=== PATIENT | female | born 1975 | race Caucasian/White ===

== ENCOUNTER 2021-02-21 12:38 | Emergency (ER) | payer OTHER, SELFPAY ==
[2021-02-21 12:45] VITALS: BP 107/67; PULSE 101; RESP 16; TEMP 37.1; O2SAT 100
--- NOTE | 2021-02-21 12:59 | ED.SKABFB ---
HPI - Skin/Abscess/Foreign Bdy General Chief complaint: Skin/Abscess/Foreign Body Stated complaint: SPIDER BITE Time Seen by Provider: 02/21/21 12:48 Source: patient and RN notes reviewed Mode of arrival: ambulatory Limitations: no limitations History of Present Illness HPI narrative: Patient presents today with an insect bite to her left buttock that she noticed yesterday. Reports that her daughter told her today that it looks like it may be infected and has a bruise around it. Patient called her PCP to get in for an appointment today, but was told to come to urgent care for evaluation. Patient denies pain, but reports itching. Reports soreness with touching. She has tried no interventions for symptoms prior to arrival. MD complaint: insect bite/sting Related Data Allergies Allergy/AdvReac Type Severity Reaction Status Date / Time cephalexin Allergy Unknown Skin Verified 10/07/20 16:05 Reaction codeine Allergy Unknown stomach Verified 10/07/20 16:05 pains erythromycin base Allergy Unknown Skin Verified 10/07/20 16:05 Reaction hydrocodone Allergy Unknown Unknown Verified 10/07/20 16:05 Penicillins Allergy Unknown Skin Verified 10/07/20 16:05 Reaction Sulfa (Sulfonamide Allergy Unknown Skin Verified 10/07/20 16:05 Antibiotics) Reaction Review of Systems Review of Systems: Narrative: CONSTITUTIONAL: Denies body aches, fever, chills, or sweats. EYES: Denies visual changes, redness, or discharge. ENT: Denies rhinorrhea, congestion, sore throat, or otalgia. CARDIOVASCULAR: Denies chest pain, palpitations, or edema. RESPIRATORY: Denies cough or dyspnea. GASTROINTESTINAL: Denies abdominal pain, nausea, vomiting, or diarrhea. GENITOURINARY: Denies dysuria or hematuria. SKIN: Denies rash, itching, or wounds.+ Insect bite to left buttock MUSCULOSKELETAL: Denies back pain, joint pain, or myalgia. NEUROLOGIC: Denies headache, numbness, tingling, or weakness. PSYCH: Denies depression or anxiety. [facility] Family History Family History Grandparent Diabetes mellitus Family history of coronary artery disease Father Hypertension Family history of elevated blood lipids Cerebrovascular accident Family history of coronary artery disease Mother Hypertension Social History Social History Smoking status: Never smoker Alcohol intake: never Comments At time of signature, I have reviewed and agree with nursing past medical, surgical, social and family history unless otherwise noted. Please see nursing chart for further information. There is no relevant family history pertinent to the presenting complaint Exam Narrative: Exam Narrative: GENERAL: Well-appearing, well-nourished, and in no acute distress. HEAD: Normocephalic, atraumatic. EYES: EOMI. No redness or drainage. Conjunctivae normal. ENT: Mucous membranes pink and moist. NECK: Normal AROM. CHEST: No respiratory distress. EXTREMITIES: Normal range of motion. No edema. SKIN: Warm, dry, no rash. Capillary refill normal. Normal skin turgor. 2 x 2 centimeter area of old healing ecchymosis to the left lower buttock with area in the center that appears to have a scab removed. No area of erythema, induration, fluctuance. No other evidence of bacterial infection present. NEURO: No focal deficits. Alert and oriented x3. Gait steady. PSYCH: Normal affect. No signs of depression or anxiety. Course Vital Signs Vital signs: Vital Signs Temperature 98.7 F 02/21/21 12:45 Pulse Rate 101 H 02/21/21 12:45 Respiratory Rate 16 02/21/21 12:45 Blood Pressure 107/67 02/21/21 12:45 Pulse Oximetry 100 02/21/21 12:45 Temperature 98.7 F 02/21/21 12:45 Pulse Rate 101 H 02/21/21 12:45 Respiratory Rate 16 02/21/21 12:45 Blood Pressure 107/67 02/21/21 12:45 Pulse Oximetry 100 02/21/21 12:45 Reviewed MDM - Skin
== END 2021-02-21 13:04 | disposition home or self-care (01) ==
PROVIDERS: Emergency Provider Nurse Practitioner; PCP Family Medicine
DX: S30.0XXA Contusion of lower back and pelvis, initial encounter (principal); S30.860A Insect bite (nonvenomous) of lower back and pelvis, initial encounter; W57.XXXA Bitten or stung by nonvenomous insect and other nonvenomous arthropods, initial encounter
CPT/HCPCS: 99211; G0463

== ENCOUNTER 2023-03-31 11:21 | Outpatient (CLI) | payer OTHER, SELFPAY ==
[2023-03-31 12:12] LABS: Basophils Absolute Auto 0.1 K/mm3 (0.0-0.1); Basophils Percent Auto 0.5 % (0.2-1.2); Eosinophils Absolute Auto 0.1 K/mm3 (0-0.3); Eosinophils Percent Auto 0.8 % (0-4.4); Hematocrit 43.4 % (37.0-47.0); Hemoglobin 14.4 g/dL (12.0-15.0); Immature Granulocyte Absolute 0.01 K/mm3 (0.00-0.031); Immature Granulocyte Percent A 0.1 % (0-0.5); Lymphocytes Absolute Auto 2.47 K/mm3 (0.9-3.2); Lymphocytes Percent Auto 26.5 % (18.3-44.2); Mean Corpuscular HGB Conc 33.2 g/dl (32-36); Mean Corpuscular Hemoglobin 30.2 pg (26-34); Mean Platelet Volume 10.1 fl (7.4-10.4); Monocytes Absolute Auto 0.5 K/mm3 (0.1-0.6); Monocytes Percent Auto 5.8 % (2.6-8.5); Neutrophils Absolute Auto 6.2 K/mm3 (1.3-6.7); Neutrophils Percent Auto 66.3 % (45.5-73.1); Platelet Count Result 275 k/mm3 (150-375); Red Blood Count 4.77 M/mm3 (4.2-5.4); Red Cell Distribution Width 13.2 % (11.5-14.5); White Blood Count 9.3 K/mm3 (4.5-10.0)
[2023-03-31 12:36] LABS: Troponin I < 0.012 ng/mL (0.000-0.034)
[2023-03-31 12:43] LABS: D Dimer < 0.27 ug/mL (<0.48)
== END 2023-03-31 11:22 | disposition home or self-care (01) ==
LOC: ANHGOSHLAB 11:22
PROVIDERS: PCP Family Medicine; Visit Provider Nurse Practitioner Family
DX: R00.0 Tachycardia, unspecified (principal); R42 Dizziness and giddiness
CPT/HCPCS: 36415; 84484; 85025; 85380

== ENCOUNTER 2023-08-20 00:49 | Day surgery (SDC) | payer OTHER, SELFPAY ==
[2023-08-05 10:38] VITALS: BMI 25.6
--- NOTE | 2023-08-18 09:34 | SUR.PREOP ---
Patient called regarding upcoming procedure. Reviewed preop instructions, appointment times, and procedure prep.
--- NOTE | 2023-08-19 13:59 | PM.HPGS ---
History of Present Illness History of Present Illness Consent: Risks, benefits, and alternatives have been discussed and questions answered. Patient agrees to proceed with procedure. Chief complaint: neoplasm screening Narrative: Anshu Morin is a 48 year old female referred for colon cancer screening. Review of Systems Review of Systems: All systems reviewed & are unremarkable except as noted in HPI and below PMFSH Past Medical History Medical History Light-headed feeling Tachycardia Family History Family History Grandparent Diabetes mellitus Family history of coronary artery disease Father Hypertension Family history of elevated blood lipids Cerebrovascular accident Family history of coronary artery disease Mother Hypertension Social History Social History Smoking status: Never smoker Alcohol intake: never Substance use: never Substance use type: does not use Lack of Transportation: No Lack of Food: Never True Current Housing: I Have Housing Concerned About Future Housing: No Difficulty Paying Gas/Electric Bills: No Difficulty Paying for Meds: No Currently Unemployed: No Education: Bachelor's Degree Difficulty w/ Childcare or Family Care: No Living arrangements: with family Spiritual care concerns: No Meds Home Medications and Allergies Home Medications Medication Instructions Recorded Confirmed Type rosuvastatin 20 mg tablet 20 mg PO DAILY #90 tabs 08/09/23 08/20/23 Rx Allergies Allergy/AdvReac Type Severity Reaction Status Date / Time cephalexin Allergy Unknown Skin Verified 08/05/23 10:39 Reaction codeine Allergy Unknown stomach Verified 08/05/23 10:39 pains erythromycin base Allergy Unknown Skin Verified 08/05/23 10:39 Reaction hydrocodone Allergy Unknown Unknown Verified 08/05/23 10:39 Penicillins Allergy Unknown Skin Verified 08/05/23 10:39 Reaction Sulfa (Sulfonamide Allergy Unknown Skin Verified 08/05/23 10:39 Antibiotics) Reaction Exam Const: General: alert Orientation/consciousness: patient oriented x3 Resp: Auscultation: clear to auscultation bilaterally Cardio: Rhythm: regular rhythm GI: GI Palp: Yes Soft to palpation and No Tenderness to palpation present (GI) Neuro: General: patient oriented x3 Assessment and Plan Assessment and plan (1) Screening for colon cancer: Code(s): Z12.11 - Encounter for screening for malignant neoplasm of colon Status: Acute Assessment and Plan: Colonoscopy with possible biopsy or polypectomy or cautery or injection of substances.
[2023-08-20 09:00] VITALS: BP 111/72; PULSE 81; RESP 18; TEMP 36.4; O2SAT 99; BMI 25.2
[2023-08-20] MEDS: LACTATED RINGERS 1,000 ML 150 ML IV CONT (09:10)
--- NOTE | 2023-08-20 09:18 | P.PNAN_ITS ---
Anes - Initial Pre Proc Eval Procedure: Operation Date: 08/20/23 10:00 Proposed Procedures p Screening Colonoscopy - Barrett Chowdhury MD Date/Time: 08/20/23 09:18 Surgeon: Barrett Chowdhury MD Pre Op Diagnosis: neoplasm screening Patient Data Age: 48 Gender: F Height: 1.55 m Weight: 60.6 kg Last Vital Signs Temp 97.6 F 08/20/23 09:00 Pulse 81 08/20/23 09:00 Resp 18 08/20/23 09:00 BP 111/72 08/20/23 09:00 Pulse Ox 99 08/20/23 09:00 O2 Del Method Room Air 08/20/23 09:00 Allergies Allergy/AdvReac Type Severity Reaction Status Date / Time cephalexin Allergy Unknown Skin Verified 08/05/23 10:39 Reaction codeine Allergy Unknown stomach Verified 08/05/23 10:39 pains erythromycin base Allergy Unknown Skin Verified 08/05/23 10:39 Reaction hydrocodone Allergy Unknown Unknown Verified 08/05/23 10:39 Penicillins Allergy Unknown Skin Verified 08/05/23 10:39 Reaction Sulfa (Sulfonamide Allergy Unknown Skin Verified 08/05/23 10:39 Antibiotics) Reaction Home Medications Medication Instructions Recorded Confirmed Type rosuvastatin 20 mg tablet 20 mg PO DAILY #90 tabs 08/09/23 08/20/23 Rx Patient hx anesthesia problems: none Family hx anesthesia problems: none Results Review: All pre-operative results and documents have been reviewed as part of the pre- operative evaluation. [facility] Past Medical History Medical History Light-headed feeling Tachycardia Family History Family History Grandparent Diabetes mellitus Family history of coronary artery disease Father Hypertension Family history of elevated blood lipids Cerebrovascular accident Family history of coronary artery disease Mother Hypertension Social History Social History Smoking status: Never smoker Alcohol intake: never Substance use: never Substance use type: does not use Lack of Transportation: No Lack of Food: Never True Current Housing: I Have Housing Concerned About Future Housing: No Difficulty Paying Gas/Electric Bills: No Difficulty Paying for Meds: No Currently Unemployed: No Education: Bachelor's Degree Difficulty w/ Childcare or Family Care: No Living arrangements: with family Spiritual care concerns: No Anes - Eval Final PreProcedure Day of Procedure 08/20/23 09:18 Patient weight: normal Heart: regular rate and rhythm Lungs: clear to auscultation Airway: Mallampati scale class II Neurological: alert and oriented Last oral intake: >/= 8 hours ASA classification: II Emergent: no Anesthetic plan: proceed Anesthesia type and monitoring: general GIVS and standard monitoring Results Review: All pre-operative results and documents have been reviewed as part of the pre- operative evaluation. Informed Consent: The patient's anesthetic plan and its attendant risks and benefits were d iscussed with the patient/family/POA. Questions were solicited and answers provided to the satisfaction of the patient/family/POA.
[2023-08-20] MEDS: SIMETHICONE ORAL SUSPENSION 20 MG/0.3 ML 30 ML BOTTLE 0.6 ML IRRIGATION (10:00)
[2023-08-20 10:11] VITALS: BP 90/54; PULSE 75; RESP 18; O2SAT 97
[2023-08-20 10:21] VITALS: BP 99/60; PULSE 85; RESP 20; O2SAT 100
[2023-08-20 10:31] VITALS: BP 109/62; PULSE 81; RESP 18; O2SAT 100
== END 2023-08-20 10:34 | disposition home or self-care (01) ==
PROVIDERS: PCP Family Medicine; Visit Provider Internal Medicine Gastroenterology
PROC: 0DJD8ZZ Inspection of Lower Intestinal Tract, Via Natural or Artificial Opening Endoscopic (ICD-10-PCS; CPT 45378; principal; 2023-08-20 10:00)
DX: Z12.11 Encounter for screening for malignant neoplasm of colon (principal); R00.0 Tachycardia, unspecified; Z82.49 Family history of ischemic heart disease and other diseases of the circulatory system
CPT/HCPCS: 45378; J2704; J7120

== ENCOUNTER 2025-07-10 08:23 | Outpatient (CLI) | payer OTHER, SELFPAY ==
--- NOTE | 2025-07-30 11:59 | WPDHOMESLEEP ---
Sleep Study - Home Unattended Date of Study: 07/10/25 Ordering Provider: Re Kellogg DO Interpreting Provider: Rachel Escamilla MD Home Sleep Study Type: Watch PAT Height: 1.56 m Weight: 74.843 kg Body Mass Index: 30.7 Neck Circumference (inches): 15 [place]: 12 Reason for Sleep Study Hypersomnolence Sleep History Asnhu Morin is a 49-year-old female who has witnessed apneas reported to her by her , occurring at least for 6 months. She occasionally awakens from sleep feeling short of breath. She occasionally awakens at night with heartburn, belching or coughing. She constantly snores and it is always loud enough that others complain about it. She frequently has difficulty sleeping when she has a cold. She occasionally wakes up gasping for breath at night. She frequently has breathing problems at night observed by others and frequently sweats excessively at night. She never notices her heart pounding or beating irregularly at night. She frequently falls asleep during the day but never involuntarily or while driving. She does not have loss of muscle tone with strong emotion. She does not have daytime difficulties due to excessive sleepiness. She rarely feels paralyzed on waking or falling asleep. She never has vivid dreamlike scenes upon awakening or falling asleep. She never feels afraid to go to sleep. She rarely has nightmares. She rarely remembers her dreams. She frequently has racing thoughts. She does not feel sad or depressed. She does not have anxiety. She rarely has muscular tension. She does not notice parts of her body jerking. She rarely kicks at night. She does not have crawling or aching feelings in her legs. She rarely has any kind of leg pain at night. She occasionally has morning jaw pain. She rarely grinds her teeth at night. She does not feel bothered by pain during the day rarely is awakened by pain at night. She constantly wakes up feeling stiff in the morning. She occasionally wakes up with sore or achy muscles, occasionally wakes up with pain in the neck and spine. She has gained weight during the last year. Normal bedtime is 10:30 p.m., falling asleep within 30-45 minutes, typically waking between 2 and 3 times during the night, is awake for 15-30 minutes, lying in bed trying to return to sleep. She wakes in the morning at 5:20 a.m.. She keeps a similar schedule on weekends, bedtime is 11:00 p.m., waking between 6:30 a.m. and 7:00 a.m.. She estimates getting 7 hours of sleep at night. She takes naps in the afternoon or evening. A short nap lasting 10-15 minutes may be refreshing. She is drowsy for 1 hour after waking. She feels better in the morning compared to other times of day. Habits: Tobacco : never smoker Caffeine : 1 per day Alcohol : none Recreational substances : none [facility] Past Medical History Medical History (Updated 08/02/25 @ 14:15 by Rachel Escamilla MD) Pure hypercholesterolemia, unspecified Light-headed feeling Tachycardia Family History Family History Grandparent Diabetes mellitus Family history of coronary artery disease Father Hypertension Family history of elevated blood lipids Cerebrovascular accident Family history of coronary artery disease Mother Hypertension Social History Social History Smoking status: Never smoker Alcohol intake: never Substance use: never Substance use type: does not use Lack of Transportation: No Lack of Food: Never True Current Housing: I Have Housing Concerned About Future Housing: No Difficulty Paying Gas/Electric Bills: No Difficulty Paying for Meds: No Currently Unemployed: No Education: Bachelor's Degree Difficulty w/ Childcare or Family Care: No Living arrangements: with family Spiritual care concerns: No Medications Home Medications ?Medication ?Instructions ?Recorded ?Confirmed ?Type hydroxyzine HCl 25 mg tablet 25 mg PO BID PRN anxiety #30 tabs 11/06/24 06/05/25 Rx rosuvastatin 40 mg tablet 40 mg PO DAILY #90 tabs 02/05/25 06/05/25 Rx Sleep Procedure The sleep study was completed using WatchPAT a technically adequate device with seven channels: peripheral arterial tone, actigraphy, body position, snore, respiratory movement, pulse oximetry, sleep staging, and heart rate. Prior to using the device, the patient received verbal and written instructions for its application and was provided with the [employer] desk phone number for additional telephonic instruction with 24-hour availability of qualified personnel to answer questions. Sleep Architecture The total recording time is 6 hrs, 50 min. The total sleep time is 6 hrs, 39 min. Sleep latency is 6 minutes. REM latency is 42 minutes. The patient had 2 episodes of waking. Sleep architecture shows 21.3% deep sleep, 49.9% light sleep, and 28.8% stage REM. The patient spent 42.9% of total sleep time in the supine position. Sleep efficiency was 97%. Respiratory Analysis The overall AHI (pAHI 3%:) is 39.8. The central AHI is 6.7. The AHI was 42.0 in NREM and 34.2 in REM sleep. The AHI was 61.6 in Supine and 23.8 in Non-supine sleep. Percent of Justin Aparicio respirations is 0%. Oximetry Data The oxygen desaturation index (NÉSTOR 4%:) is 20.7. The mean saturation is 94%, and the lowest saturation is 84%. Time spent with saturation < 88% is 1.1 minutes. Snoring Profile Snoring average intensity is 55 dB. The patient snored above 45 decibels for 294.3 minutes, 73.8% of sleep time. Cardiac Profile The average pulse rate is 78 beats per minutes. The lowest pulse rate is 51 bpm. The highest pulse rate is 152 bpm. Cardiac rhythm analysis in sleep does not show atrial fibrillation. Assessment and Plan Assessment and Plan (1) Obstructive sleep apnea: Code(s): G47.33 - Obstructive sleep apnea (adult) (pediatric) Status: Acute Assessment and Plan: This home sleep test on 07/10/2025 shows severe obstructive sleep apnea, the overall apnea-hypopnea index is 39.8 (p>3%) , central AHI is 6.7 which is mild, supine index is higher, a 61.6, no Justin-Aparicio, lowest desaturation 84% and moderately loud snoring throughout the study. Due to the elevated central apnea index 6.7, normal is < 5 per hour, she she does have a dedicated full night CPAP titration in the sleep lab with a sleep aid available, Ambien 5-10 mg or Lunesta 2-3 mg, to get to sleep and stay asleep. She should not nap on the day of the study. Auto PAP is not recommended as this can increase the number of central apneas. Due to an increase in central apneas, consider an echo to determine if there is any left ventricular dysfunction. Increased central apneas can be seen in the setting of stroke, left ventricular dysfunction, opioids and alcohol. Patient does not have any of these per history. BMI is 30. Weight management is advised. Clinical data suggests that weight loss of 10% can reduce the severity of respiratory events and snoring and improve AHI by as much as 25%. Data The data obtained during this sleep study is adequate for interpretation. Certification This sleep study has been reviewed by a board certified sleep medicine physician.
[2025-08-02 14:11] VITALS: BMI 30.7
== END 2025-07-11 15:23 | disposition home or self-care (01) ==
PROVIDERS: PCP Family Medicine; Visit Provider Family Medicine
DX: G47.33 Obstructive sleep apnea (adult) (pediatric) (principal)
CPT/HCPCS: 95800

== ENCOUNTER 2025-08-30 10:53 | Outpatient (CLI) | payer OTHER, SELFPAY ==
--- NOTE | 2025-10-01 12:09 | WPDSLEEPSTUD ---
Sleep Study Date of Study: 08/30/25 Ordering Provider: Re Kellogg DO Interpreting Physician: Rachel Escamilla MD Sleep Study Type: CPAP Titration Height: 1.56 m Weight: 80.74 kg Body Mass Index: 33.0 Neck Circumference (inches): 15 [place]: 12 Reason for Sleep Study Hypersomnolence; (+) PSG 07/10/2025, returns for PAP titration Sleep History This sleep history is from her 07/10/25 sleep questionnaire; Anshu Morin is a 49-year-old female who has witnessed apneas reported to her by her , occurring at least for 6 months. She occasionally awakens from sleep feeling short of breath. She occasionally awakens at night with heartburn, belching or coughing. She constantly snores and it is always loud enough that others complain about it. She frequently has difficulty sleeping when she has a cold. She occasionally wakes up gasping for breath at night. She frequently has breathing problems at night observed by others and frequently sweats excessively at night. She never notices her heart pounding or beating irregularly at night. She frequently falls asleep during the day but never involuntarily or while driving. She does not have loss of muscle tone with strong emotion. She does not have daytime difficulties due to excessive sleepiness. She rarely feels paralyzed on waking or falling asleep. She never has vivid dreamlike scenes upon awakening or falling asleep. She never feels afraid to go to sleep. She rarely has nightmares. She rarely remembers her dreams. She frequently has racing thoughts. She does not feel sad or depressed. She does not have anxiety. She rarely has muscular tension. She does not notice parts of her body jerking. She rarely kicks at night. She does not have crawling or aching feelings in her legs. She rarely has any kind of leg pain at night. She occasionally has morning jaw pain. She rarely grinds her teeth at night. She does not feel bothered by pain during the day rarely is awakened by pain at night. She constantly wakes up feeling stiff in the morning. She occasionally wakes up with sore or achy muscles, occasionally wakes up with pain in the neck and spine. She has gained weight during the last year. Normal bedtime is 10:30 p.m., falling asleep within 30-45 minutes, typically waking between 2 and 3 times during the night, is awake for 15-30 minutes, lying in bed trying to return to sleep. She wakes in the morning at 5:20 a.m.. She keeps a similar schedule on weekends, bedtime is 11:00 p.m., waking between 6:30 a.m. and 7:00 a.m.. She estimates getting 7 hours of sleep at night. She takes naps in the afternoon or evening. A short nap lasting 10-15 minutes may be refreshing. She is drowsy for 1 hour after waking. She feels better in the morning compared to other times of day. Habits: Tobacco : never smoker Caffeine : 1 per day Alcohol : none Recreational substances : none [facility] Past Medical History Medical History (Updated 10/02/25 @ 13:04 by Rachel Escamilla MD) Obstructive sleep apnea Pure hypercholesterolemia, unspecified Light-headed feeling Tachycardia Family History Family History Grandparent Diabetes mellitus Family history of coronary artery disease Father Hypertension Family history of elevated blood lipids Cerebrovascular accident Family history of coronary artery disease Mother Hypertension Social History Social History Smoking status: Never smoker Alcohol intake: never Substance use: never Substance use type: does not use Lack of Transportation: No Lack of Food: Never True Current Housing: I Have Housing Concerned About Future Housing: No Difficulty Paying Gas/Electric Bills: No Difficulty Paying for Meds: No Currently Unemployed: No Education: Bachelor's Degree Difficulty w/ Childcare or Family Care: No Living arrangements: with family Spiritual care concerns: No Medications Home Medications ?Medication ?Instructions ?Recorded ?Confirmed ?Type rosuvastatin 40 mg tablet 40 mg PO QHS 09/11/25 09/11/25 History doxycycline hyclate 100 mg capsule 100 mg PO BID #20 caps 09/27/25 Rx methylprednisolone 4 mg tablets in See Rx Instructions PO PER PKG DIR 09/27/25 Rx a dose pack (Medrol ([place])) #21 ea Sleep Procedure A full CPAP polysomnogram using the [employer] multi-channel system recorded the standard physiologic parameters including EEG, EOG, submentalis EMG, anterior tibialis EMG, EKG, body position, nasal and oral airflow using nasal pressure sensor and thermistor. Respiratory parameters of chest and abdominal movements were recorded with Respiratory Inductance Plethysmography belts. Oxygen saturation was recorded by pulse oximetry. Video monitoring was also performed. Sleep stages, periodic limb movements, and EEG arousals were scored in 30 second epochs according to the criteria of the AASM Scoring Manual. The Apnea-Hypopnea Index was calculated using CMS guidelines for definition of hypopnea while scoring respiratory events. The patient was started on CPAP using a small ResMed AirTouch F20 full face mask and and heated humidity, initial pressure was CPAP 5 cm increased per protocol to CPAP 10 cm. At CPAP 10 cm, the patient spent 93.5 minutes in bed, 14.5 minute awake, 55.5 minutes in non-REM and 23.5 minutes in REM. The sleep was fishing to was 84.5% and the residual apnea-hypopnea index was 6.1. The lowest saturation was 95%. REM occurred in the right lateral position. This is the optimal pressure. Sleep Architecture The total recording time was 436.5 minutes. The total sleep time was 410.5 minutes. Sleep latency was 4.7 minutes. REM latency was 86.5 minutes. Sleep efficiency was 94.1%. The patient had 15 awakenings for an awakening index of 2.2. Wake after Sleep Onset time was 21.0 minutes. The patient spent 14.5 minutes, 3.5% of total sleep time in Stage N1. The patient spent 238.0 minutes, 58.0% in Stage N2. The patient spent 25.0 minutes, 6.1% in Stage N3. The patient spent 133.0 minutes, 32.4% in Stage REM. Respiratory Analysis The patient had 31 hypopneas, 24 obstructive apneas, 2 mixed apneas, and 30 central apneas for an overall Apnea Hypopnea Index of 12.7 events per hour. The REM Apnea Hypopnea Index was 9.0. The NREM Apnea Hypopnea Index was 14.5. The patient had a Central Apnea Hypopnea Index of 4.4. There were no Respiratory Effort Related Arousals. The Respiratory Disturbance Index is 17.2 events per hour. There was no evidence of [place] Respirations. Arousals There were 69 total arousals for an arousal index of 10.1. There were 22 spontaneous arousals for an index of 3.2. There were 24 arousals due to respiratory events for an index of 3.5. There were 8 arousals due to periodic limb movements for an index of 1.2. There were 13 arousals due to isolated limb movements for an index of 1.9. Periodic Limb Movements The patient had 33 isolated limb movements with an index of 4.8. The patient had 73 periodic limb movements with index of 10.7. Patient had a total of 106 limb movements with a total limb movement index of 15.5. Oximetry Data The patient had an average oxygen saturation of 95.7% in sleep with a minimum oxygen saturation of 81% and a maximum oxygen saturation of 100%. The patient had 45 oxygen desaturations that were 4% or greater resulting in an Oxygen Desaturation Index of 6.6. The patient spent 3.4 minutes, 0.8% of total sleep time with an oxygen saturation below 88%. Snoring Profile Snoring was eliminated during the titration. Cardiac Profile The EKG showed normal sinus rhythm. The patient had an average pulse rate of 76.4 bpm with a minimum pulse rate of 57 bpm and a maximum pulse rate of 106 bpm. No arrhythmias noted. EEG Profile Unremarkable, no evidence of seizures. Assessment and Plan Assessment and Plan (1) Obstructive sleep apnea: Code(s): G47.33 - Obstructive sleep apnea (adult) (pediatric) Status: Acute Assessment and Plan: This full night CPAP titration on 08/30/2025 shows a successful outcome using a small ResMed AirTouch F20 full face mask, heated humidity, and an optimal pressure of CPAP 10 cm. At CPAP 10 cm, the patient spent 93.5 minutes in bed, 14.5 minute awake, 55.5 minutes in non-REM and 23.5 minutes in REM. The sleep efficiency was 84.5% and the residual apnea-hypopnea index was 6.1. The lowest saturation was 95%. REM occurred in the right lateral position. This is the optimal pressure. The patient should be prescribed this ResMed equipment as well as tubing, filters and reservoir. This should be used with all episodes of sleep. Compliance should be reviewed within 31-90 days of starting therapy for usage greater than 4 hours per night greater than 70% of the nights. The patient should be asked about symptoms such as excessive daytime sleepiness, quality of sleep, decreased nocturia, increased mental functioning such as memory, mood, and concentration. BMI is 33. Weight management is advised. Clinical data suggests that weight loss of 10% can reduce the severity of respiratory events and snoring and improve AHI by as much as 25%. Data The data obtained during this sleep study is adequate for interpretation. Certification This sleep study has been reviewed by a board certified sleep medicine physician.
[2025-10-04 10:54] VITALS: BMI 33.0
== END 2025-08-31 06:33 | disposition home or self-care (01) ==
LOC: ANHCSM 10:57
PROVIDERS: PCP Family Medicine; Visit Provider Family Medicine
DX: G47.33 Obstructive sleep apnea (adult) (pediatric) (principal); G47.10 Hypersomnia, unspecified; Z68.33 Body mass index [BMI] 33.0-33.9, adult
CPT/HCPCS: 95811